=== PATIENT | male | born 1990 | race Caucasian/White ===

== ENCOUNTER 2019-11-18 18:50 | Emergency (ER) | payer BC ==
[2019-11-18] MEDS ORDERED: Alum Hydrox/Mag Hydrox/Simeth 30 ML, Lidocaine 2% 15 ML PO ONE ×2 (19:21)
--- NOTE | 2019-11-18 19:57 | EDM.PDOC ---
ED HPI GENERAL MEDICAL PROBLEM - General Chief Complaint: Abdominal Pain Stated Complaint: STOMACH PAIN AND CHEST PAIN Time Seen by Provider: 11/18/19 19:02 Source of Information: Reports: Patient History Limitations: Reports: No Limitations - History of Present Illness INITIAL COMMENTS - FREE TEXT/NARRATIVE: This is a 29-year-old male. Over the last several days he has been having some generalized mid abdominal discomfort. Today it seemed to go in the epigastric area. He does not have any nausea or vomiting he has had some mild diarrhea but no fever no chills. He has no history of colitis or Crohn's or enteritis. Because of these symptoms mild as they are he comes to the ER for evaluation. He has no history of gallbladder problems. He has no family history of any sort of abdominal difficulties. He does not drink alcohol or rarely. He does not seem to have any other history. Remember being around anyone that is been sick lately with any sort of stomach problems. Upper Abdominal Pain Score (Numeric/FACES): 5 - Related Data Allergies Allergy/AdvReac Type Severity Reaction Status Date / Time No Known Allergies Allergy Verified 11/18/19 19:04 Home Meds: Home Meds Esomeprazole Magnesium [Nexium 24Hr] 40 mg PO QAM #14 tablet. 11/18/19 [Rx] Past Medical History - Past Health History Medical/Surgical History: Denies Medical/Surgical History Social & Family History - Tobacco Use Smoking Status *Q: Never Smoker - Recreational Drug Use Recreational Drug Use: No ED ROS GENERAL - Review of Systems Review Of Systems: See Below Constitutional: Denies: Fever, Chills HEENT: Reports: No Symptoms Respiratory: Denies: Shortness of Breath, Cough Cardiovascular: Denies: Chest Pain Endocrine: Reports: No Symptoms GI/Abdominal: Reports: Abdominal Pain, Diarrhea. Denies: Constipation, Nausea, Vomiting : Reports: No Symptoms Musculoskeletal: Reports: No Symptoms Skin: Reports: No Symptoms Neurological: Reports: No Symptoms Psychiatric: Reports: No Symptoms Hematologic/Lymphatic: Reports: No Symptoms ED EXAM, GI/ABD - Physical Exam Exam: See Below Exam Limited By: No Limitations General Appearance: Alert, WD/WN, No Apparent Distress Eyes: Bilateral: Normal Appearance Ears: Normal External Exam Nose: Normal Inspection Throat/Mouth: Normal Inspection, Normal Lips, Normal Voice, No Airway Compromise Head: Normocephalic Neck: Supple Respiratory/Chest: No Respiratory Distress, Lungs Clear, Normal Breath Sounds Cardiovascular: Regular Rate, Rhythm, No Murmur GI/Abdominal Exam: Soft, Non-Tender, No Mass, Other (Sounds are positive). No: Guarding, Rigid, Rebound Back Exam: Full Range of Motion Extremities: Normal Inspection, Normal Range of Motion Neurological: Alert, Oriented Psychiatric: Normal Affect, Normal Mood Skin Exam: Warm, Dry Course - Vital Signs Last Recorded V/S: Last Vital Signs Temp 98.4 F 11/18/19 19:04 Pulse 68 11/18/19 19:04 Resp 16 11/18/19 19:04 BP 150/82 H 11/18/19 19:04 Pulse Ox 99 11/18/19 19:04 - Orders/Labs/Meds Labs: Laboratory Tests 11/18/19 11/18/19 Range/Units 19:30 19:30 WBC 6.57 (4.23-9.07) K/mm3 RBC 4.98 (4.63-6.08) M/mm3 Hgb 14.3 (13.7-17.5) gm/dl Hct 40.8 (40.1-51.0) % MCV 81.9 (79.0-92.2) fl MCH 28.7 (25.7-32.2) pg MCHC 35.0 (32.2-35.5) g/dl RDW Std Deviation 36.8 (35.1-43.9) fL Plt Count 243 (163-337) K/mm3 MPV 9.4 (9.4-12.3) fl Neut % (Auto) 56.2 (34.0-67.9) % Lymph % (Auto) 31.2 (21.8-53.1) % Blair % (Auto) 10.0 (5.3-12.2) % Eos % (Auto) 2.4 (0.8-7.0) Baso % (Auto) 0.2 (0.1-1.2) % Neut # (Auto) 3.69 (1.78-5.38) K/mm3 Lymph # (Auto) 2.05 (1.32-3.57) K/mm3 Blair # (Auto) 0.66 (0.30-0.82) K/mm3 Eos # (Auto) 0.16 (0.04-0.54) K/mm3 Baso # (Auto) 0.01 (0.01-0.08) K/mm3 Sodium 147 H (136-145) mEq/L Potassium 3.7 (3.5-5.1) mEq/L Chloride 108 H (98-107) mEq/L Carbon Dioxide 28 (21-32) mEq/L Anion Gap 14.7 (5-15) BUN 22 H (7-18) mg/dL Creatinine 1.4 H (0.7-1.3) mg/dL Est Cr Clr Drug Dosing 77.85 mL/min Estimated GFR (MDRD) 60 (>60) mL/min BUN/Creatinine Ratio 15.7 (14-18) Glucose 98 (74-106) mg/dL Calcium 8.8 (8.5-10.1) mg/dL Total Bilirubin 0.3 (0.2-1.0) mg/dL AST 27 (15-37) U/L ALT 37 (16-63) U/L Alkaline Phosphatase 62 (46-116) U/L Troponin I < 0.017 (0.00-0.056) ng/mL Total Protein 6.9 (6.4-8.2) g/dl Albumin 4.2 (3.4-5.0) g/dl Globulin 2.7 gm/dL Albumin/Globulin Ratio 1.6 (1-2) Lipase 126 (73-393) U/L Meds: Medications Discontinued Medications Generic Name Dose Route Start Last Admin Trade Name Freq PRN Reason Stop Dose Admin Al Hydroxide/Mg Hydroxide 30 0 ml 11/18/19 19:21 11/18/19 19:28 ml/ Lidocaine HCl 15 ml PO 11/18/19 19:22 45 ml ONETIME ONE Administration - Re-Assessments/Exams Free Text/Narrative Re-Assessment/Exam: 11/18/19 20:38 The GI cocktail seemed to help his epigastric symptoms. But his mid abdominal gnawing crampy type pain was not helped. His CBC was completely normal and I spoke to him about the results of the minimally elevated sodium of 147 chloride as well as a minimally elevated BUN and creatinine. He states he drinks lots of fluids and mostly water his urine looks dilute. I told him that he needs to follow-up with his family doctor recheck labs. Departure - Departure Time of Disposition: 20:40 Disposition: Home, Self-Care 01 Condition: Good Clinical Impression: Viral syndrome, Abdominal cramps, Epigastric pain - Discharge Information *PRESCRIPTION DRUG MONITORING PROGRAM REVIEWED*: Not Applicable *COPY OF PRESCRIPTION DRUG MONITORING REPORT IN PATIENT GIOVANA: Not Applicable Prescriptions: Esomeprazole Magnesium [Nexium 24Hr] 40 mg PO QAM #14 tablet. Instructions: Viral Illness, Adult Referrals: PCP,None [Primary Care Provider] - Forms: ED Department Discharge, ED Return to Work/School Form Additional Instructions: Continue to drink lots of fluids, rest and sleep as much as possible, take the Nexium every morning for the next 2 weeks and see if it does not resolve epigastric symptoms, if your symptoms worsen especially if you start running a fever greater than 101 follow-up with your family doctor or return to the ER, follow-up with your family doctor later this week for recheck of your lab levels. Sepsis Event Note - Evaluation Sepsis Screening Result: No Definite Risk - Focused Exam Vital Signs: Vital Signs Temp Pulse Resp BP Pulse Ox 11/18/19 19:04 98.4 F 68 16 150/82 H 99 Date Exam was Performed: 11/18/19 Time Exam was Performed: 20:38
== END 2019-11-18 21:08 | disposition home or self-care (01) ==
LOC: JD.ED 18:50
DX: R10.13 Epigastric pain (principal); B34.9 Viral infection, unspecified
CPT/HCPCS: 36415; 80053; 83690; 84484; 85025; 99284; A9270